=== PATIENT | male | born 1990 | race Hispanic/Latino ===

== ENCOUNTER 2021-01-16 | Emergency (ER) | payer SELFPAY | END 2021-01-17 00:45 | disposition home or self-care (01) | DRG 605 | PROC: 0HQ1XZZ Repair Face Skin, External Approach (ICD-10-PCS; principal; 2021-01-16) | DX: S01.81XA Laceration without foreign body of other part of head, initial encounter (principal); S63.611A Unspecified sprain of left index finger, initial encounter; Y00.XXXA Assault by blunt object, initial encounter; Y92.009 Unspecified place in unspecified non-institutional (private) residence as the place of occurrence of the external cause ==

== ENCOUNTER 2021-01-26 18:46 | Emergency (ER) | payer SELFPAY ==
[2021-01-26 19:23] VITALS: BP 128/65
== END 2021-01-26 19:29 | disposition home or self-care (01) | DRG 950 ==
LOC: ED 18:46
DX: S01.81XD Laceration without foreign body of other part of head, subsequent encounter (principal); X58.XXXD Exposure to other specified factors, subsequent encounter